=== PATIENT | female | born 1970 | race Caucasian/White ===

== ENCOUNTER 2018-02-02 08:43 | Emergency (ER) | payer OTHER ==
[~2018-02-02] VITALS: Ht 160 cm; Wt 59.0 kg
[2018-02-02 08:46] VITALS: BP 116/74
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
[2018-02-02] MEDS ORDERED: CYCLOBENZAPRINE10 M1 PO (09:30)
[2018-02-02] MEDS ORDERED: MOBIC15 M1 PO (09:30)
== END 2018-02-02 09:34 ==
LOC: ERH 08:43
DX: S16.1XXA Strain of muscle, fascia and tendon at neck level, initial encounter (principal); V89.2XXA Person injured in unspecified motor-vehicle accident, traffic, initial encounter; Y92.410 Unspecified street and highway as the place of occurrence of the external cause